=== PATIENT | female | born 1945 | race Caucasian/White ===

== ENCOUNTER 2017-07-21 08:10 | Day surgery (SDC) | payer MEDICARE, OTHER ==
[~2017-07-21] VITALS: Ht 157.5 cm; Wt 101.2 kg
[~2017-07-21 08:10] MED LIST: ACET65TA OR; ACETAMINOPHEN 325 MG TAB PO PRN; ACETYLCHOLINE OPHTH SOLN 1% 2ML (MIOCHOL-E) As Ordered ONE; ASPI1TAB PO; ASPI81TA83 OR; BENA10TA2 OR; BIMA01SOL OU; BRIM1OPD OU; BSS with VANC/TOB/EPI for EYE CASES IR ONE; CEFUROXIME 1MG/0.1ML INTRACAMERAL INJ As Ordered ONE; CELE20TA OR; CHRO1CAP PO; CHRO1TAB2 PO; CITA20TA4 PO; COUM1TAB17 PO; CYCLOPENTOLATE 2% OPHTH SOLN 2ML BTL OD ONE; DORZ2OPD OU; GLUC500T3 OR; HEALON DUET (HEALON 10MG/ML 0.55ML & HEALON ENDOCOAT 30MG/ML 0.85ML) As Ordered ONE; HYDR25TA6 OR; L-LYSINE OR; LIDOCAINE 1% SDV 5 ML VIAL As Ordered ONE; LIDOCAINE 3.5 % 1ML OPHTH TOPICAL GEL OU ONE; LR 1,000 ML IV ONE; MAGN250T9 PO; MOVE1TAB PO; MULT1TAB10 PO; MULTIVIT OR; OFLOXACIN 0.3 % (OCUFLOX) OPTH SOL 5ML OD ONE; PERC5TAB12 PO; PHENYLEPHRINE 2.5% OPHTH SOL 2ML OD ONE; POTA99TA PO; POVIDONE-IODINE 5% OPHTH PREP SOL 30ML As Ordered ONE; PROPARACAINE 0.5% OPHTH SOL 15ML OD PRN; SPIR25TA2 PO; TROPICAMIDE 1% OPHTH SOLN 2ML OD ONE; [UNRECOGNIZED DRUG - CODE] PO; [UNRECOGNIZED DRUG - OTHER] PO
[2017-07-21] MEDS ORDERED: LIDOCAINE 4% INJ 5 ML AMP As Ordered ONE (10:31)
[2017-07-21] MEDS ORDERED: HEALON DUET (HEALON 10MG/ML 0.55ML & HEALON ENDOCOAT 30MG/ML 0.85ML) As Ordered ONE ×2 (10:35→11:06)
[2017-07-21] MEDS ORDERED: MIDAZOLAM INJ 2 MG/2 ML VIAL (J2250) As Ordered ONE ×2 (10:53→11:03)
[2017-07-21] MEDS ORDERED: fentaNYL 100 MCG/2 ML INJECTION (J3010) As Ordered ONE (10:53)
[2017-07-21] MEDS ORDERED: LIDOCAINE 4% INJ 5 ML AMP OU ONE (10:57)
[2017-07-21] MEDS ORDERED: PROPOFOL 200 MG/20 ML VIAL As Ordered ONE (11:13)
[2017-07-21 11:40] VITALS: BP 149/67
[2017-07-21] MEDS ORDERED: TRIMETHOBENZAMIDE 300 MG CAP PO PRN (12:00)
[2017-07-21] MEDS ORDERED: KETOROLAC 0.5% OPHTH SOLN OD ONE (12:00)
--- NOTE | 2017-07-22 14:34 | RO ---
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 PROCEDURE: Phacoemulsification with intraocular lens implantation of Hoya model 250 power 9 diopters along with endocyclophotocoagulation and placement of the iStent. SURGEON: Dr. Bhumika Hall [employer] SALES: None. DESCRIPTION OF PROCEDURE: Procedure in detail: The patient was brought to the operating room and laid in supine position. The eye was prepped and draped in a sterile fashion for ophthalmic solution, and a lid speculum was placed. A sideport incision was then made, and EndoCoat was injected into the anterior chamber. A temporal clear corneal incision was then made with a 2.5 mm keratome, followed by capsulorrhexis and hydrodissection. Phacoemulsification was then done in a [id number] method within the capsular bag. Excess corticol material was then aspirated using irrigation and aspiration cannula, followed by insertion of Healon into the capsular bag and insertion of the Hoya intraocular lens (IOL). Following this, Healon was inserted into the ciliary sulcus to visualize the ciliary processes on the video screen with the help of the EndoProbe. Endocyclophotocoagulation was done at 0.25 mW for 280 degrees with good results noted by shrinking of the ciliary processes. This was followed by placement of the Healon into the anterior chamber with the patient's head turned away from the surgeon and the microscope turned towards the surgeon. Under high mag with the help of the Goniolens, the iStent was inserted into the infranasal quadrant. Right at this point of insertion, the patient made a sudden movement, and some heme was noted to appear from the iris. Healon was used to tamponade the heme, which stopped. Excess viscoelastic was then aspirated. The patient continued to be very restless. We were not sure about the exact location of the iStent, but it seemed to be positioned well, but because of the blood clot, it was difficult to decipher. Excess viscoelastic was aspirated. The wound hydrated. Lid speculum removed. The patient was returned to the recovery room in stable condition, and the case was discussed in detail with the patient in the postoperative area.
== END 2017-07-21 12:05 | disposition home or self-care (01) ==
LOC: M SDC 08:10
PROVIDERS: ATTEND Ophthalmology
DX: H25.9 Unspecified age-related cataract (principal); H40.811 Glaucoma with increased episcleral venous pressure, right eye; I10 Essential (primary) hypertension; K21.9 Gastro-esophageal reflux disease without esophagitis; F41.9 Anxiety disorder, unspecified; Z88.2 Allergy status to sulfonamides; Z79.82 Long term (current) use of aspirin; Z79.899 Other long term (current) drug therapy
CPT/HCPCS: 66183; 66711; 66984; C1783; J2250; J3010; V2632

== ENCOUNTER → 2018-01-04 | Outpatient (CLI) | payer MEDICARE, OTHER ==
[2018-01-04 12:30] LABS: BASO # 0.1 10^3/uL (0.0-0.2); BASO % 0.6 % (0.0-1.0); EOS # 0.3 10^3/uL (0.0-0.50); EOS % 3.2 % (0.0-3.0); HEMATOCRIT 41.8 % (36.0-47.0); HEMOGLOBIN 13.6 g/dl (12.0-16.0); IMMATURE GRANULOCYTE # 0.1 10^3/uL (0-0); IMMATURE GRANULOCYTE % 0.9 % (0-0); LYMPH # 2.2 10^3/uL (1.5-4.5); LYMPH % 27.6 % (24.0-44.0); MEAN CORPUSCULAR HEMOGLOBIN 29.9 pg (27.0-33.0); MEAN CORPUSCULAR HGB CONC 32.5 g/dl (32.0-36.5); MEAN CORPUSCULAR VOLUME 91.9 fl (80.0-96.0); MONO # 0.7 10^3/uL (0.0-0.8); MONO % 8.7 % (0.0-5.0); NEUTROPHILS # 4.6 10^3/uL (1.8-7.7); PLATELET COUNT, AUTOMATED 268 10^3/uL (150-450); RED BLOOD COUNT 4.55 10^6/uL (4.00-5.40); RED CELL DISTRIBUTION WIDTH 13.2 % (11.5-14.5); WHITE BLOOD COUNT 7.8 10^3/uL (4.0-10.0)
[2018-01-04 12:44] LABS: ALBUMIN 3.6 GM/DL (3.2-5.2); ALBUMIN/GLOBULIN RATIO 0.95 (1.00-1.93); ALKALINE PHOSPHATASE 73 U/L (45-117); ALT/SGPT 29 U/L (12-78); ANION GAP 5 MEQ/L (8-16); AST/SGOT 23 U/L (7-37); BILIRUBIN,TOTAL 0.5 MG/DL (0.2-1.0); BLOOD UREA NITROGEN 18 MG/DL (7-18); CALCIUM LEVEL 8.8 MG/DL (8.8-10.2); CARBON DIOXIDE LEVEL 31 MEQ/L (21-32); CHLORIDE LEVEL 103 MEQ/L (98-107); CREATININE FOR GFR 1.09 MG/DL (0.55-1.30); GLOMERULAR FILTRATION RATE 52.5 (>39); GLUCOSE, FASTING 123 MG/DL (70-100); POTASSIUM SERUM 4.6 MEQ/L (3.5-5.1); SODIUM LEVEL 139 MEQ/L (136-145); TOTAL PROTEIN 7.4 GM/DL (6.4-8.2)
== END ==
LOC: M WUC 09:32
DX: R05 Cough (principal)
CPT/HCPCS: 80053

== ENCOUNTER 2018-01-31 17:18 | Emergency (ER) | payer MEDICARE, OTHER ==
[2018-01-31] MEDS: NORCO, ANEXSIA 5/325MG TABLET (HYDROcodone/ACETAMINOPHEN) PO (18:03)
== END 2018-01-31 19:18 | disposition home or self-care (01) ==
LOC: M ED 17:18
DX: S93.601A Unspecified sprain of right foot, initial encounter (principal); W10.9XXA Fall (on) (from) unspecified stairs and steps, initial encounter; Y92.099 Unspecified place in other non-institutional residence as the place of occurrence of the external cause; Y93.9 Activity, unspecified; F41.9 Anxiety disorder, unspecified; F32.9 Major depressive disorder, single episode, unspecified; E66.9 Obesity, unspecified; Z79.82 Long term (current) use of aspirin; Z79.899 Other long term (current) drug therapy
CPT/HCPCS: 73630

== ENCOUNTER → 2019-01-11 | Outpatient (CLI) | payer MEDICARE, OTHER ==
[~2019-01-11] MED LIST changes: -ACETAMINOPHEN 325 MG TAB PO PRN; -ACETYLCHOLINE OPHTH SOLN 1% 2ML (MIOCHOL-E) As Ordered ONE; -BSS with VANC/TOB/EPI for EYE CASES IR ONE; -CEFUROXIME 1MG/0.1ML INTRACAMERAL INJ As Ordered ONE; -CYCLOPENTOLATE 2% OPHTH SOLN 2ML BTL OD ONE; -HEALON DUET (HEALON 10MG/ML 0.55ML & HEALON ENDOCOAT 30MG/ML 0.85ML) As Ordered ONE; -LIDOCAINE 1% SDV 5 ML VIAL As Ordered ONE; -LIDOCAINE 3.5 % 1ML OPHTH TOPICAL GEL OU ONE; -LR 1,000 ML IV ONE; +NORCOTAB PO; -OFLOXACIN 0.3 % (OCUFLOX) OPTH SOL 5ML OD ONE; -PHENYLEPHRINE 2.5% OPHTH SOL 2ML OD ONE; -POVIDONE-IODINE 5% OPHTH PREP SOL 30ML As Ordered ONE; -PROPARACAINE 0.5% OPHTH SOL 15ML OD PRN; +SPIR-10 PO; -SPIR25TA2 PO; -TROPICAMIDE 1% OPHTH SOLN 2ML OD ONE
--- NOTE | 2019-01-11 11:47 | REP ---
PA and lateral chest: Comparison is 01/04/2018. The lung robles are clear. Cardiac size is mildly enlarged as an interval change. The adry, mediastinum, skeletal structures are unremarkable except for an old healed fracture of the left humeral neck. Impression: Mild cardiomegaly as an interval change. Otherwise, negative PA and lateral chest. Electronically Signed by Ryan Crenshaw MD 01/11/2019 11:39 A
== END ==
LOC: M SMT 10:44
PROVIDERS: ATTEND Internal Medicine Pulmonary Disease
DX: I51.7 Cardiomegaly (principal); S42.202D Unspecified fracture of upper end of left humerus, subsequent encounter for fracture with routine healing; R06.02 Shortness of breath

== ENCOUNTER → 2020-06-04 | Outpatient (CLI) | payer MEDICARE, OTHER ==
[~2020-06-04] MED LIST changes: -ASPI1TAB PO; +ASPI81TA26 PO; -CITA20TA4 PO; +CITA20TA6 PO; +HYDR-3715 PO; -NORCOTAB PO
--- NOTE | 2020-06-04 10:37 | PFTRPT ---
Visit Date: 06/04/2020 Referring Doctor: MD Brownlee Jon Height: 62.00 Inches Weight: 223.00 Lbs BSA: 2.00 Diagnosis: R06.02 Pre and postbronchodilator study of excellent technical quality. Forced vital capacity is reduced. FEV1 in proportion. Obstructive index is therefore normal. Expiratory limb of the flow volume loop does suggest limitation. Total lung capacity mildly elevated. Residual volume does suggest air trapping. Diffusing capacity is reduced, but is appropriate for alveolar volume. Hemoglobin remarkably reduced at 8.5. Airways resistance elevated with concomitant increase in airway conductance. No significant bronchodilator response was identified on the above study. IMPRESSION: Nonspecific flow rate limitation with underlying air trapping. Diffusing capacity impaired, most likely on the basis of anemia. Please correlate clinically. MTDD
--- NOTE | 2020-06-04 13:33 | REP ---
REASON FOR EXAM: Dyspnea. COMPARISON: Multiple the latest 01/11/2019. FINDINGS: The superior mediastinal structures are midline. The cardiac silhouette is unremarkable in size, shape, and position. The diaphragmatic surfaces of the lungs are regular, and the costophrenic angles are clear. The pulmonary robles are clear. The imaged osseous structures are intact. IMPRESSION: There is no acute cardiopulmonary disease. Electronically Signed by Jin Bettencourt DO 06/04/2020 02:40 P
== END ==
LOC: M CARPUL 08:22
PROVIDERS: ATTEND Family Medicine
DX: R06.02 Shortness of breath (principal)

== ENCOUNTER 2020-06-17 21:54 | Emergency (ER) | payer MEDICARE, OTHER ==
[~2020-06-17] VITALS: Ht 157.5 cm; Wt 99.5 kg
[2020-06-17 23:09] VITALS: BP 148/70
[2020-06-17] MEDS ORDERED: COCAINE 4% TOP SOLN 4 ML VIAL TOP ONE (23:15)
[2020-06-17] MEDS ORDERED: SILVER NITRATE APPLICATOR TOP ONE (23:15)
== END 2020-06-17 23:44 | disposition home or self-care (01) ==
LOC: M ED 21:54
DX: R04.0 Epistaxis (principal); E11.9 Type 2 diabetes mellitus without complications; I10 Essential (primary) hypertension; E66.9 Obesity, unspecified; F33.9 Major depressive disorder, recurrent, unspecified; F41.9 Anxiety disorder, unspecified; Z79.82 Long term (current) use of aspirin; Z79.899 Other long term (current) drug therapy

== ENCOUNTER 2021-04-24 15:05 | Emergency (ER) | payer MEDICARE, OTHER ==
[~2021-04-24] VITALS: Ht 157.5 cm; Wt 97.7 kg
[2021-04-24 15:43] LABS: HEMATOCRIT 35.2 % (36.0-47.0); HEMOGLOBIN 11.3 g/dl (12.0-15.5); MEAN CORPUSCULAR HEMOGLOBIN 25.2 pg (27.0-33.0); MEAN CORPUSCULAR HGB CONC 32.1 g/dl (32.0-36.5); MEAN CORPUSCULAR VOLUME 78.6 fl (80.0-96.0); PLATELET COUNT, AUTOMATED 358 10^3/uL (150-450); RED BLOOD COUNT 4.48 10^6/uL (4.00-5.40); WHITE BLOOD COUNT 6.5 10^3/uL (4.0-10.0)
[2021-04-24] MEDS ORDERED: LISI-898 (15:43)
[2021-04-24] MEDS ORDERED: LOPE-26 PO (15:43)
[2021-04-24] MEDS ORDERED: FURO20TA2 (15:43)
[2021-04-24 15:57] LABS: BLOOD UREA NITROGEN 16 MG/DL (7-18); CALCIUM LEVEL 8.7 MG/DL (8.8-10.2); CARBON DIOXIDE LEVEL 27 MEQ/L (21-32); CHLORIDE LEVEL 102 MEQ/L (98-107); CREATININE FOR GFR 0.92 MG/DL (0.55-1.30); GLOMERULAR FILTRATION RATE > 60.0 (>39); GLUCOSE, FASTING 119 MG/DL (70-100); POTASSIUM SERUM 4.2 MEQ/L (3.5-5.1); SODIUM LEVEL 136 MEQ/L (136-145)
[2021-04-24] MEDS ORDERED: NS 1,000 ML IV ONE (16:00)
[2021-04-24 16:20] LABS: CK-MB VALUE MASS < 1.0 NG/ML (<3.6); CPK CREATINE PHOSPHOKINASE 87 U/L (26-192); LDH LACTATE DEHYDROGENASE 196 U/L (84-246); MAGNESIUM LEVEL 2.5 MG/DL (1.8-2.4); MB/CK RELATIVE INDEX 1.15 (< OR =4)
[2021-04-24 16:21] LABS: C REACTIVE PROTEIN QUANTITATIV 4.63 MG/DL (0.00-0.30); TROPONIN I < 0.02 NG/ML (< 0.10)
[2021-04-24 16:38] LABS: EOSINOPHILS 5 % (0-3); LYMPHOCYTES 29 % (16-44); MONOCYTES 4 % (0-5); NEUTROPHILS 62 % (28-66)
[2021-04-24 16:43] LABS: OVALOCYTES 1+
[2021-04-24 16:44] LABS: ANISOCYTOSIS 1+; MICROCYTOSIS 1+
[2021-04-24 16:49] LABS: PLATELET ESTIMATE NORMAL (NORMAL)
[2021-04-24 16:53] LABS: ERYTHROCYTE SEDIMENTATION RATE 59 mm/hr (0-30)
[2021-04-24 18:30] VITALS: BP 143/83
--- NOTE | 2021-04-25 05:42 | ECGEPIP ---
[facility] - ED Test Date: 2021-04-24 Pat Name: JOY MEJIA Department: Room: - Gender: Female Pellet [employer]: LR : 1945 Requested By: Erasmo Rodriguez Order Number: [id number] Reading MD: Erasmo Hodges Measurements Intervals [place] Rate: 62 P: 0 NC: 162 QRS: -14 QRSD: 80 T: 41 QT: 426 QTc: 432 Interpretive Statements Normal sinus rhythm NONSPECIFIC T WAVE ABNORMALITY(S) NO PRIORS FOR COMPARISON Electronically Signed on 04-25-2021 5:42:09 EDT by Erasmo Hodges
== END 2021-04-24 18:45 | disposition home or self-care (01) ==
LOC: EDBD 15:05 → M ED 15:05
DX: U07.1 COVID-19 (principal); I10 Essential (primary) hypertension; F41.9 Anxiety disorder, unspecified; Z79.899 Other long term (current) drug therapy; Z86.73 Personal history of transient ischemic attack (TIA), and cerebral infarction without residual deficits; Z90.49 Acquired absence of other specified parts of digestive tract; Z98.890 Other specified postprocedural states

== ENCOUNTER 2021-06-19 22:10 | Emergency (ER) | payer MEDICARE, OTHER ==
[~2021-06-19] VITALS: Ht 152.4 cm; Wt 100.0 kg
[~2021-06-19 22:10] MED LIST changes: +FURO20TA2; +LISI-898; +LOPE-26 PO
[2021-06-19 23:47] LABS: BASO # 0.1 10^3/uL (0.0-0.2); BASO % 0.5 % (0.0-1.0); EOS # 0.3 10^3/uL (0.0-0.5); EOS % 2.3 % (0.0-3.0); HEMOGLOBIN 10.7 g/dl (12.0-15.5); LYMPH # 1.6 10^3/uL (1.5-5.0); LYMPH % 14.6 % (24.0-44.0); MEAN CORPUSCULAR HEMOGLOBIN 26.8 pg (27.0-33.0); MEAN CORPUSCULAR HGB CONC 31.5 g/dl (32.0-36.5); MONO # 1.3 10^3/uL (0.0-0.8); MONO % 11.5 % (2.0-8.0); NEUTROPHILS # 7.9 10^3/uL (1.5-8.5); NEUTROPHILS % 70.7 % (36.0-66.0); PLATELET COUNT, AUTOMATED 283 10^3/uL (150-450); WHITE BLOOD COUNT 11.2 10^3/uL (4.0-10.0)
[2021-06-20 00:02] LABS: INR 0.89; PROTHROMBIN TIME 12.2 SECONDS (12.5-14.3)
[2021-06-20 00:03] LABS: PARTIAL THROMBOPLASTIN TIME 24.2 SECONDS (24.2-38.5)
[2021-06-20 00:28] LABS: CALCIUM LEVEL 8.5 MG/DL (8.8-10.2); CREATININE FOR GFR 1.27 MG/DL (0.55-1.30); GLOMERULAR FILTRATION RATE 43.6 (>39); MAGNESIUM LEVEL 2.2 MG/DL (1.8-2.4); POTASSIUM SERUM 4.1 MEQ/L (3.5-5.1)
--- NOTE | 2021-06-20 01:12 | REPVR ---
PROCEDURE INFORMATION: Exam: US Duplex Lower Extremity Veins, Bilateral Exam date and time: 06/20/2021 12:03 AM Age: 76 years old Clinical indication: Pain; Leg, lower; Bilateral; Additional info: Lower extremity pain l>r, h/o covid TECHNIQUE: Imaging protocol: Real-time duplex ultrasound of the extremities with 2-D madden scale, color Doppler flow and spectral waveform analysis with image documentation. Complete exam focused on the bilateral lower extremity veins. COMPARISON: CR Foot, complete 01/31/2018 5:51 PM FINDINGS: Right deep veins: Common femoral, femoral, proximal profunda femoral and popliteal veins are patent without thrombus. Normal Doppler waveforms. Normal compressibility and/or augmentation response. Right superficial veins: Saphenofemoral junction is patent without thrombus. Left deep veins: Common femoral, femoral, proximal profunda femoral and popliteal veins are patent without thrombus. Normal Doppler waveforms. Normal compressibility and/or augmentation response. Left superficial veins: Saphenofemoral junction is patent without thrombus. Soft tissues: No abnormal focal fluid collection. IMPRESSION: No evidence of deep vein thrombosis. Electronically signed by: Fox Calderon On 06/20/2021 01:11:20 AM
[2021-06-20 01:35] LABS: C REACTIVE PROTEIN QUANTITATIV 0.33 MG/DL (0.00-0.30)
[2021-06-20 02:01] LABS: ERYTHROCYTE SEDIMENTATION RATE 32 mm/hr (0-30)
[2021-06-20 02:15] VITALS: BP 150/68
== END 2021-06-20 02:36 | disposition home or self-care (01) ==
LOC: M ED 22:10
DX: R25.2 Cramp and spasm (principal); I50.9 Heart failure, unspecified; I10 Essential (primary) hypertension; Z86.73 Personal history of transient ischemic attack (TIA), and cerebral infarction without residual deficits; Z86.16 Personal history of COVID-19; Z79.899 Other long term (current) drug therapy

== ENCOUNTER → 2022-01-08 | Outpatient (CLI) | payer MEDICARE, OTHER ==
[~2022-01-08] MED LIST changes: +BRIN1OPH OU; -FURO20TA2; +FURO20TA2 PO; -LISI-898; +LISI5TAB11; +VITMTA PO
== END ==
LOC: M LABSMTC 09:41
PROVIDERS: ATTEND Anesthesiology
DX: Z01.818 Encounter for other preprocedural examination (principal); Z11.52 Encounter for screening for COVID-19

== ENCOUNTER 2022-01-13 06:51 | Day surgery (SDC) | payer MEDICARE, OTHER ==
[~2022-01-13] VITALS: Ht 157.5 cm; Wt 99.4 kg
[~2022-01-13 06:51] MED LIST changes: +CYCLOPENTOLATE 1% OPHTH SOLN 2 ML BTL OS SCH; +DUOVISC (0.50ML VISCOAT/0.85ML PROVISC) OPHTH KIT As Ordered ONE; +FLURBIPROFEN 0.03% OPHTH SOLN 2.5 ML OS SCH; +LIDOCAINE 1% SDV 5ML VIAL As Ordered ONE; +LR 1,000 ML IV ONE; +PHENYLEPHRINE 2.5% OPHTH SOL 2ML OS SCH; +TETRACAINE 0.5% OPHTH SOLN 4ML OS SCH
[2022-01-13] MEDS ORDERED: MIDAZOLAM INJ 2MG/2ML VIAL (J2250 PER 1MG) As Ordered ONE ×2 (06:59→09:18)
[2022-01-13] MEDS ORDERED: fentaNYL 100 MCG/2 ML INJECTION As Ordered ONE (06:59)
[2022-01-13] MEDS ORDERED: LR 1,000 ML IV SCH (07:00)
[2022-01-13] MEDS ORDERED: hydrALAZINE 20MG/ML 1ML VIAL (J0360 PER 20MG) As Ordered ONE (09:22)
[2022-01-13] MEDS ORDERED: ACETAMINOPHEN 500 MG TAB PO ONE (10:10)
[2022-01-13 10:35] VITALS: BP 176/76
== END 2022-01-13 10:39 | disposition home or self-care (01) ==
LOC: M SDC 06:51
PROVIDERS: ATTEND Ophthalmology
DX: H25.12 Age-related nuclear cataract, left eye (principal); H40.1120 Primary open-angle glaucoma, left eye, stage unspecified; I10 Essential (primary) hypertension; K21.9 Gastro-esophageal reflux disease without esophagitis; M81.0 Age-related osteoporosis without current pathological fracture; F41.9 Anxiety disorder, unspecified; F32.9 Major depressive disorder, single episode, unspecified; Z79.899 Other long term (current) drug therapy
CPT/HCPCS: 65820; 66174; 66984; J0360; J2250; J3010; V2787

== ENCOUNTER → 2022-07-13 | Outpatient (CLI) | payer MEDICARE, OTHER ==
[~2022-07-13] MED LIST changes: -CYCLOPENTOLATE 1% OPHTH SOLN 2 ML BTL OS SCH; -DUOVISC (0.50ML VISCOAT/0.85ML PROVISC) OPHTH KIT As Ordered ONE; -FLURBIPROFEN 0.03% OPHTH SOLN 2.5 ML OS SCH; +HYDR-643 PO; +K-TA10TA PO; +L-LY500T15 PO; -LIDOCAINE 1% SDV 5ML VIAL As Ordered ONE; -LR 1,000 ML IV ONE; +MULTTAB86 PO; -PHENYLEPHRINE 2.5% OPHTH SOL 2ML OS SCH; -TETRACAINE 0.5% OPHTH SOLN 4ML OS SCH
== END ==
LOC: M LABSMTC 09:20
PROVIDERS: ATTEND Anesthesiology
DX: Z01.812 Encounter for preprocedural laboratory examination (principal); Z20.822 Contact with and (suspected) exposure to COVID-19

== ENCOUNTER 2022-07-16 10:46 | Day surgery (SDC) | payer MEDICARE, OTHER ==
[~2022-07-16] VITALS: Ht 157.5 cm; Wt 99.8 kg
[~2022-07-16 10:46] MED LIST changes: +NS 1,000 ML IV ONE
[2022-07-16] MEDS ORDERED: LIDOCAINE 2% 100MG/5ML SDV (FOR ANES.) As Ordered ONE (12:09)
[2022-07-16] MEDS ORDERED: propofoL 200 MG/20 ML VIAL As Ordered ONE ×2 (12:09→12:28)
[2022-07-16 12:59] VITALS: BP 168/70
== END 2022-07-16 13:05 | disposition home or self-care (01) ==
LOC: M OPP 10:46
PROVIDERS: ATTEND Internal Medicine Gastroenterology
DX: D12.6 Benign neoplasm of colon, unspecified (principal); K64.0 First degree hemorrhoids; R19.5 Other fecal abnormalities; Z80.0 Family history of malignant neoplasm of digestive organs; I10 Essential (primary) hypertension; F41.9 Anxiety disorder, unspecified; F32.9 Major depressive disorder, single episode, unspecified; E11.9 Type 2 diabetes mellitus without complications; Z79.899 Other long term (current) drug therapy; Z88.1 Allergy status to other antibiotic agents; Z88.2 Allergy status to sulfonamides; Z88.8 Allergy status to other drugs, medicaments and biological substances; Z91.048 Other nonmedicinal substance allergy status

== ENCOUNTER → 2023-10-28 | Outpatient (CLI) | payer MEDICARE, OTHER ==
[~2023-10-28] MED LIST changes: -K-TA10TA PO; -NS 1,000 ML IV ONE; +POTA-164 PO
== END ==
LOC: M PLAIMG 10:49
PROVIDERS: ATTEND Family Medicine
DX: R05.9 Cough, unspecified (principal); K44.9 Diaphragmatic hernia without obstruction or gangrene

== ENCOUNTER 2025-04-12 11:18 | Day surgery (SDC) | payer MEDICARE, OTHER ==
[~2025-04-12] VITALS: Ht 157.5 cm; Wt 94.8 kg
[~2025-04-12 11:18] MED LIST changes: -BRIM1OPD OU; +BRIM5DRO25 OU; +FERR325T3 PO; +GLUC1TAB58 PO; +MAGN250T7 PO; +POTA99CA2 PO; +[UNRECOGNIZED DRUG - CODE] PO; +propofoL 500 MG/50 ML VIAL As Ordered ONE
[2025-04-12] MEDS ORDERED: LIDOCAINE 2% 100MG/5ML SDV (FOR ANES.) As Ordered ONE (12:28)
[2025-04-12] MEDS ORDERED: propofoL 200 MG/20 ML VIAL As Ordered ONE (12:28)
[2025-04-12 12:33] VITALS: TEMP 98.1
[2025-04-12 12:56] VITALS: BP 188/79; O2SAT 97
== END 2025-04-12 13:08 | disposition home or self-care (01) ==
LOC: M OPP 11:18
PROVIDERS: ATTEND Internal Medicine Gastroenterology
DX: Z12.11 Encounter for screening for malignant neoplasm of colon (principal); D12.0 Benign neoplasm of cecum; K64.0 First degree hemorrhoids; D50.9 Iron deficiency anemia, unspecified; K44.9 Diaphragmatic hernia without obstruction or gangrene; K29.50 Unspecified chronic gastritis without bleeding; K57.30 Diverticulosis of large intestine without perforation or abscess without bleeding; Z90.49 Acquired absence of other specified parts of digestive tract; Z86.0100 Personal history of colon polyps, unspecified; Z90.710 Acquired absence of both cervix and uterus; Z79.899 Other long term (current) drug therapy; Z91.048 Other nonmedicinal substance allergy status; Z98.51 Tubal ligation status; Z80.0 Family history of malignant neoplasm of digestive organs; Z80.3 Family history of malignant neoplasm of breast